=== PATIENT | female | born 1995 | race Caucasian/White ===

== ENCOUNTER 2024-04-16 11:44 | Outpatient (AMB) | payer OTHER, SELFPAY ==
--- NOTE | 2024-04-16 11:46 | A.OFFPC_ITS ---
Vital Signs 04/16/24 11:49 04/16/24 12:11 Height 5 ft 2 in Weight 148 lb 2 oz BMI 27.1 BP 136/72 114/64 Blood Pressure Location Lt brachial Lt brachial Position Sitting Sitting Respiration 14 Pulse 85 Pulse Source Pulse Oximeter Pulse Oximetry (%) 96 Oxygen Delivery Method Room Air Intake Visit Reasons: Est. Care / Physical (check ins) Intake Note: new patient to establish care Allergies Penicillins Allergy (Severe, Verified 04/16/24 11:58) Hives Medication List - Last Reconciled 04/16/24 by Irma Duffy, [facility]- norethindrone-ethin estradiol 0.5-35 mg-mcg (Necon) tabs PO DAILY rizatriptan take 1 tablet at onset of headache; if no relief, may repeat 1 tablet after at least 2 hrs PO Tobacco use date assessed: 04/16/24 Dental Screening Dental Screen Date: 04/16/24 Did you have a dental visit in the last 12 months?: No Did you have a dental problem in the last 6 months where you did not have access to dental care?: No Was dental information given to patient?: Patient has dentist HPI HPI Comments History of Present Illness Details Alis 28 y/o F with migraine without aura, mul tiple concussions, renal stones, OCD, GENOVEVA, PTSD, history of recurrent strep despite tonsillectomy, family hx of skin ca s/p lithotripsy 2017, tonsillectomy 2013, sinus surgery as child s/p dog bite 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 Mom and Dad alive and well. 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 & for CPE. No old medical records Relocated here from [facility], moved for College. Migraines - was on gabapentin in the past. Stopped taking. Has chronic migr aines, has tunnel vision at times, pain behind bilat eyes more on L. Well controlled w/ triptan Also using medical marijauna for migraines OCD, GENOVEVA, PTSD: tried antidepressant and anxiolytic in the past w/o + effect. Active w/ counselor. Lots of health anxiety. Denies SI/HI Eyes - could probably use glasses. Does not want to do eye exam at this time Skin - Family hx of skin cancer. No active concerns. Would like routine screening. Plan Derm referral Refill on migraine meds cont care w/ care team RTO 1 year for CPE Labs from today show normal electrolytes, normal renal function, hemoglobin A1c 4.7%, normal LFTs, normal lipid profile, normal TSH, normal urine microalbumin creatinine ratio [facility] Medical History (Updated 04/16/24 @ 16:46 by Irma Duffy, [facility]) No pertinent family history Migraines Anxiety Surgical History (Updated 04/16/24 @ 12:24 by Annmarie Vizcarra MA) History of facial surgery Hx of tonsillectomy Family History (Updated 04/16/24 @ 11:54 by Annmarie Vizcarra MA) Mother Mental health disorder Sister Mental health disorder Maternal Grandfather Mental health disorder Social History (Updated 04/16/24 @ 12:24 by Annmarie Vizcarra MA) Household Members: None Housing: House Are you a primary career specialist to a significant other at home: No Do you presently have visiting nurse or other home services: No Alcohol intake: current Alcohol intake frequency: a few times a month Patient Tobacco Use Status: Never used Tobacco e-Cigarette/Vaping Use: Never Used Substance Use Type: Marijuana service: No Current occupational status: employed 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 1. Little interest or pleasure in doing things: not at all 2. Feeling down, depressed, or hopeless: not at all 3. Trouble falling or staying asleep, or sleeping too much: several days 4. Feeling tired or having little energy: not at all 5. Poor appetite or overeating: not at all 6. Feeling bad about yourself - or that you are a failure or have let yourself or your family down: several days 7. Trouble concentrating on things, such as reading the newspaper or watching television: not at all 8. Moving or speaking so slowly that other people could have noticed. Or the opposite - being so fidgety or restless that you have been moving around a lot more than usual: not at all 9. Thoughts that you would be better off or of hurting yourself in some way: not at all Total score: 2 Depression Screening Interpretation: Negative Depression Screening Done: Yes 68897 - PHQ-9 Billing: Yes Source: Developed by Drs. Jass Scott, Maida Taylor, Hima Kim and colleagues, with an educational vanessa from [email or web address]. Thrive Questionnaire Date Thrive assessed: 04/16/24 I am a: Patient What is your living situation today?: I have a steady place to live Within the past 12 months, did the food you bought not last and you didn't have the money to get more?: Never true Within the past 12 months, did you worry whether your food would run out before you got money to buy more?: Never true Do you have trouble paying for medicines?: No Do you have trouble getting transportation to medical appointments?: No Do you have trouble paying your heating and electricity bill?: No Do you have trouble taking care of your child, family member or friend?: No Do you have trouble with day-to-day activities such as bathing, preparing meals, shopping, managing finances, etc.?: No Are you currently unemployed and looking for a job?: No Are you interested in more education?: No Please select the resources that you would like help with: None Currently or been in a relationship where the following occur: I choose not to answer THRIVE Score: 0 AUDIT C Alcohol Use Questionnaire (AUDIT-C) 1. How often do you have a drink containing alcohol?: 2-4 times a month 2. How many drinks containing alcohol do you have on a typical day when you are drinking?: 3 or 4 3. How often do you have six or more drinks on one occasion?: Never Total Score: 3 Score Reviewed/Action Taken: Yes GENOVEVA-7 AMB Questionnaire GENOVEVA-7 Date GENOVEVA - 7 assessed: 04/16/24 Feeling nervous, anxious, or on edge: 2 = More than half the days Not being able to stop or control worryin = More than half the days Worrying too much about different things: 2 = More than half the days Trouble relaxin = Nearly every day Being so restless that it is hard to sit still: 1 = Several days Becoming easily annoyed or irritable: 0 = Not at all Feeling afraid as if something awful might happen: 2 = More than half the days Total GENOVEVA-7 score (0-4 normal; 5-9 mild; 10-14 moderate; 15-21 severe): 12 Source: Developed by Drs. Jass Scott, Maida Taylor, Hima Kim and colleagues, with an educational vanessa from [email or web address]. GENOVEVA-7 Assessment Billing GENOVEVA-7 Assessment Tool: GENOVEVA-7 Assessment 56576 Review of Systems Const Details: Constitutional: Denies fever. Skin: Denies rash. Eye: Denies eye pain. ENMT: Denies sore throat and nasal congestion. Respiratory: Denies shortness of breath and cough. Gastrointestinal: Denies nausea, vomiting or abdominal pain. Cardiovascular: Denies chest pain and syncope. Genitourinary: Denies dysuria. Musculoskeletal: Denies back pain and extremity pain. Neurologic: Denies headaches, confusion, and weakness. Psychiatric: Denies suicidal thoughts and substance abuse. Allergy/ Immunologic: Denies impaired immunity. Physical exam (Primary Care) Vital Signs: Last Vital Signs Pulse 85 04/16/24 11:49 Resp 14 04/16/24 11:49 BP 114/64 04/16/24 12:11 Pulse Ox 96 04/16/24 11:49 Oxygen Delivery Method Room Air 04/16/24 11:49 BMI result Body Mass Index 27.1 Tobacco/Smoking Status: Tobacco use Status Tobacco use date assessed 04/16/24 04/16/24 11:53 Patient Tobacco Use Status Never used Tobacco 04/16/24 11:53 e-Cigarette/Vaping Use Never Used 04/16/24 11:53 PHQ-9: PHQ-9 Score PHQ-9: Total score 2 04/16/24 12:06 Depression Screening Interpretation: Negative Thrive Assessment: Date of Thrive Assessment Date Thrive assessed 04/16/24 04/16/24 11:48 Currently or been in a relationship where the following occur: I choose not to answer Const Other: General: Well developed, well nourished, in no acute distress. Appears stated age. Head: Normocephalic, atraumatic. Eyes: Pupils are equal, round and reactive to light and accommodation. Conjunctivae are clear. Vision grossly normal. Ears: TMs clear AU, EACS WNL Nose: Patent, without discharge. Mouth: There are no ulcers or lesions noted. No inflammation, no post nasal drip, no plaques nor exudates. Neck: Supple, no adenopathy or thyromegaly. Lungs: Clear to auscultation bilaterally. No rales, rhonchi or wheeze noted. Good air flow in all parada. Heart: Regular rate and rhythm. No murmurs, click, rubs or gallops are noted. Abdomen: Bowel sounds present in all quadrants. The abdomen is soft, nontender, with no masses or organomegaly noted. No hernias are noted. Musculoskeletal: Joints are nontender, without swelling, redness, or effusions. Range of motion is observed to be normal. Pulses: Peripheral pulses are equal and palpable bilaterally. Extremities: No clubbing, cyanosis nor edema is noted. Neurologic: Gait and station normal. Cranial Nerves 2-12 intact. Motor strength grossly symmetrical and intact. No sensory loss. Balance normal. Skin: No rashes, ulcers, or lesions noted. Turgor is good. Skin color is good. Hair and nails are without abnormalities. Psych: Normal eye contact, affect and mood appropriate, and normal inter actions. Patient is alert and appropriate to context. Coding Level of Care Code New Pt Prev Care 18-39yr(58257 Diagnoses Encounter for general adult medical examination without abnormal findings Z00.00 Migraine without aura and without status migrainosus, not intractable G43.009 Status migrainosus presence: without status migrainosus Intractability: not intractable Mixed obsessional thoughts and acts F42.2 Obsessive-compulsive disorder type: mixed obsessional thoughts and acts GENOVEVA (generalized anxiety disorder) F41.1 Family history of skin cancer Z80.8 Renal stones N20.0 PTSD (post-traumatic stress disorder) F43.10 Recurrent streptococcal pharyngitis J02.0 H/O multiple concussions Z87.820 Laboratory exam ordered as part of routine general medical examination Z00.00 Additional Codes GENOVEVA-7 Assessment Billing - GENOVEVA-7 Assessment Tool: GENOVEVA-7 Assessment 25417 ([id number]) Assessment & Plan Assessment & Plan (1) Encounter for general adult medical examination without abnormal findings: Code(s): Z00.00 - Encounter for general adult medical examination without abnormal findings Plan: . (2) Migraine without aura: Code(s): G43.009 - Migraine without aura, not intractable, without status migrainosus Category: Medical Qualifiers: Status migrainosus presence: without status migrainosus Intractability: not intractable Qualified Code(s): G43.009 - Migraine without aura, not intractable, without status migrainosus Plan: . (3) OCD (obsessive compulsive disorder): Code(s): F42.9 - Obsessive-compulsive disorder, unspecified Category: Medical Qualifiers: Obsessive-compulsive disorder type: mixed obsessional thoughts and acts Qualified Code(s): F42.2 - Mixed obsessional thoughts and acts Plan: . (4) GENOVEVA (generalized anxiety disorder): Code(s): F41.1 - Generalized anxiety disorder Category: Medical Plan: . (5) Family history of skin cancer: Code(s): Z80.8 - Family history of malignant neoplasm of other organs or systems Category: Medical Plan: . (6) Renal stones: Code(s): N20.0 - Calculus of kidney Category: Medical Plan: . (7) PTSD (post-traumatic stress disorder): Code(s): F43.10 - Post-traumatic stress disorder, unspecified Category: Medical Plan: . (8) Recurrent streptococcal pharyngitis: Comment: despite tonsillectomy Code(s): J02.0 - Streptococcal pharyngitis Category: Medical Plan: . (9) H/O multiple concussions: Code(s): Z87.820 - Personal history of traumatic brain injury Category: Medical Plan: . (10) Laboratory exam ordered as part of routine general medical examination: Code(s): Z00.00 - Encounter for general adult medical examination without abnormal findings Category: Medical Plan: . Orders: Orders Comprehensive Met. Panel Today Z00.00 - Encounter for general adult medical examination without abnormal findings TSH reflex Free T4 Today Z00.00 - Encounter for general adult medical examination without abnormal findings Hemoglobin A1c Today Z00.00 - Encounter for general adult medical examination without abnormal findings Lipid Panel Today Z00.00 - Encounter for general adult medical examination without abnormal findings Microalbumin, Random (w Creat) Today Z00.00 - Encounter for general adult medical examination without abnormal findings Referrals Dermatology Referral Z80.8 - Family history of malignant neoplasm of other organs or systems Medications: New rizatriptan take 1 tablet at onset of headache; if no relief, may repeat 1 tablet after at least 2 hrs PO 10 tabs 2RF Patient Instructions: Walk-In Care (Urgent Care): We Make it Easy Walk-in for urgent medical issues such as: ? Seasonal Allergies ? Insect Bites ? Cough ? Diarrhea ? Acute Asthma Attacks ? Back, Knee or Joint Pain ? Ear Infection ? Fever without a Rash ? Headaches ? Nausea ? [place] Eye, Rash or Skin Irritation ? Sore Throat ? Sports Physicals ? Vomiting Most insurances are accepted. Patients do not need to be part of the [facility] to seek care at the walk-in clinic. Locations [facility] , [place] [address] ? [phone] [facility] Walk-In Care in [place] provides services to ages 18 and over. Open Sunday-Sunday: 8 a.m. to 5 p.m. and Sunday: 9 a.m. to 3 p.m.* *Hours may vary due to staffing availability. To confirm Walk-In Care hours in [place], please call [phone]. [address] [place] [address] ? [phone] [facility] Walk-In Care in [place] provides services to ages 12 and over. Open Sunday-Sunday: 8 a.m. to 5 p.m. Hours may vary due to staffing availability. To confirm Walk-In Care hours in [place], please call [phone]. LABORATORY SERVICES: [facility] Lab ? Primary Location [address] [place] [address] Sunday through Sunday 6:00 AM ? 5:00 PM Sunday 7:00 AM ? 11:00 AM* [phone] The [facility] Lab is centrally located near the front entrance of the Medical Center for easy outpatient access. Convenient parking is provided for outpatients. *Hours may vary due to staffing availability. To confirm Laboratory hours for any location, please call [phone]. Offsite Location For your convenience, we offer offsite laboratory draw stations at the following locations: [address] [place] [address] ? [address], [address] Sunday through Sunday 7:30 AM ? 1:00 PM* [phone] *Hours may vary due to staffing availability. To confirm Laboratory hours for any location, please call [phone]. [place] ? [address] Sunday through Sunday 6:00 AM ? 3:30 PM* Sunday 6:30 AM ? 3 PM* [phone] *Hours may vary due to staffing availability. To confirm Laboratory hours for any location, please call [phone]. [address] [facility] Sunday through Sunday 7:30 AM ? 4:00 PM* [phone] *Hours may vary due to staffing availability. To confirm Laboratory hours for any location, please call [phone]. [address] [facility] Sunday through 9:00 AM ? 4:00 PM* *Hours may vary due to staffing availability. To confirm Laboratory hours for any location, please call [phone]. Appointments are not necessary. Walk-ins are welcome. Like all the departments throughout the [facility], our Lab undergoes frequent reviews to ensure the quality and accuracy of test results, and our staff takes special pride in its status as a nationally accredited facility. Patient Portal: ONE PATIENT. ONE RECORD. BETTER CARE. [facility] has a fully integrated, cutting- edge mobile electronic health information system that has revolutionized the way we care for our patients and manage our organization. This system improves communication and coordination enabling us to provide safe, higher-quality care, and an overall positive experience for staff and patients. Our first priority, as always, is to deliver the highest quality care possible. The system is running in the background supporting that priority. This portal is for all [facility] and [facility] services and practices. If you are experiencing any technical difficulties with enrolling or logging into the Patient Portal please complete the [facility] Patient Portal Technical Support Form. [facility] now offers a new secure on-line interactive tool for patients to review their health information ? Patient Portal. This interactive web portal will enable patients and their families to take an active role in their care by providing easy, secure access to their health information via the internet. The Patient Portal provides patients with instant access to their health information, including laboratory results, medications, allergies, demographic information, visit history, and more. In addition to managing their own care, parents and health care proxies with authorized consent will appreciate the ability to access the records of those individuals for whom they provide care. Please note: if you wish to gain access (Proxy) to another patient?s portal, you will be required to come to the Medical Records Department in person at [facility]. Both the patient giving proxy access and the proxy will need to provide photo identification and complete the appropriate authorization. The Patient Portal also allows track their appointments online. The [facility] Patient Portal also saves patients time by allowing them to submit updates to their demographic and contact information prior to their visits. Portal email notifications will also alert patients to any new activity on their portal, such as test results and new appointments. In order to initially enroll in the [facility] Patient Portal, you will need to enter some required information including the following: ? your [facility] Medical Record number ? your personal home email address ? name ? date of Please note: In order to enroll in the [facility] Patient Portal, we need to have your email address on file in your electronic medical record. The email address needs to be specific for one person (yourself) in order for your Portal enrollment to be successful. You can update your email address in person with our Registration staff when you are registering for a hospital visit. Otherwise, you will need to come to the Health Information Management (Medical Records) Department at [facility]. We are open from Sunday ? Sunday from 7:30 a.m. ? 4:30 p.m. You will be required to present a photo id. Once you have successfully enrolled in the Patient Portal, you will receive a one-time user id and password for the Portal, sent to your email address. This will allow you to log into the Patient Portal within 99 hrs and reset your own logon id and password, and define personal security questions. Once your permanent login and password have been set, you can log into the [facility] Patient Portal at any time via the blue button above or from the Portal Logon button on any page of the [facility] website. [facility] and [facility] encourage all of our patients to enroll in Patient Portal as it presents a valuable opportunity for patients and their families to actively participate in their care and stay healthy Welcome to [facility]. We look forward to working with you. Health screenings for women You should visit your health care provider from time to time, even if you are healthy. The purpose of these visits is to: Screen for medical issues Assess your risk for future medical problems Encourage a healthy lifestyle Update vaccinations and other preventive care services Help you get to know your provider in case of an illness Information Even if you feel fine, you should still see your provider for regular checkups. These visits can help you avoid problems in the future. For example, the only way to find out if you have high blood pressure is to have it checked regularly. High blood sugar and high cholesterol levels also may not have any symptoms in the early stages. A simple blood test can check for these conditions. There are specific times when you should see your provider or receive specific health screenings. The [place] Preventive Services Task Force publishes a list of recommended screenings. Below are screening guidelines for women ages 18 to 39. BLOOD PRESSURE SCREENING Your blood pressure should be checked at least once every 3 to 5 years if: Your blood pressure is in the normal range (top number less than 120 mm Hg and bottom number less than 80 mm Hg) You don't have risk factors for high blood pressure Ask your provider if you need your blood pressure checked more often if: The top number is 120 to 129 mm Hg or the bottom number is 70 to 79 mm Hg You have diabetes, heart disease, kidney problems, are overweight, or have certain other health conditions You have a first-degree relative with high blood pressure You are Black You had high blood pressure during a If the top number is 130 mm Hg or greater or the bottom number is 80 mm Hg or greater, this is considered stage 1 hypertension. Schedule an appointment with your provider to learn how you can reduce your blood pressure. Watch for blood pressure screenings in your area. Ask your provider if you can stop in to have your blood pressure checked. BREAST CANCER SCREENING Experts do not agree about the benefits of breast self-exams in finding breast cancer or saving lives. Talk to your provider about what is best for you. A screening mammogram is not recommended for most women under age 40. Your provider may discuss and recommend mammograms, MRI scans, or ultrasounds if you have an increased risk for breast cancer, such as: A mother or sister who had breast cancer at a young age (most often starting screening earlier than the age the close relative was diagnosed) You carry a high-risk genetic marker CERVICAL CANCER SCREENING Cervical cancer screening should start at age 21 years unless your provider advises otherwise. After the first test: Women ages 21 through 29 should have a Pap test every 3 years. Exoprts do not agree on whether HPV testing is recommended for this age group. Women ages 30 through 65 should be screened with either a Pap test every 3 years or the HPV test every 5 years or both tests every 5 years (called cotesting ). Women who have been treated for precancer (cervical dysplasia) should continue to have Pap tests for 20 years after treatment or until age 65, whichever is longer. If you have had your uterus and cervix removed (total hysterectomy), and you have not been diagnosed with cervical cancer or precancer (high grade cervical neoplasia), you do not need cervical cancer screening. CHOLESTEROL SCREENING Cholesterol screening should begin at: Age 45 for women with no known risk factors for coronary heart disease Age 20 for women with known risk factors for coronary heart disease Repeat cholesterol screening should take place: Every 5 years for women with normal cholesterol levels More often if changes occur in lifestyle (including weight gain and diet) More often if you have diabetes, heart disease, kidney problems, or certain other conditions DIABETES SCREENING You should be screened for diabetes starting at age 35 and then repeated every 3 years if you have no risk factors for diabetes. Screening may need to start earlier and be repeated more often if you have other risk factors for diabetes, such as: You have a first degree relative with diabetes. You are overweight or have obesity. You have high blood pressure, prediabetes, or a history of heart disease. Screening for diabetes should be done if you are planning to become and you are overweight and have other risk factors such as high blood pressure. DENTAL EXAM Go to the dentist once or twice every year for an exam and cleaning. Your dentist will evaluate if you need more frequent visits. EYE EXAM Have an eye exam every 5 to 10 years before age 40. If you have vision problems, have an eye exam every 2 years or more often if recommended by your provider. You should have an eye exam that includes an examination of your retina (back of your eye) at least every year if you have diabetes. IMMUNIZATIONS Commonly needed vaccines include: Flu shot: get one every year. COVID-19 vaccine: ask your provider what is best for you. Tetanus-diphtheria and acellular pertussis (Tdap) vaccine: have one at or after age 19 as one of your tetanus-diphtheria vaccines if you did not receive it as an adolescent. Tetanus-diphtheria: have a booster (or Tdap) every 10 years. Varicella vaccine: receive 2 doses if you never had chickenpox or the varicella vaccine. Hepatitis B vaccine: receive 2, 3, or 4 doses, depending on your exact circumstances. Measles, mumps, and rubella (MMR) vaccine: receive 1 to 2 doses if you are not already immune to MMR. Your provider can tell you if you are immune. Ask your provider about the human papillomavirus (HPV) vaccine if: You have not received the HPV vaccine in the past You have not completed the full vaccine series (you should catch up on this shot) Ask your provider if you should receive other immunizations if you have certain health problems that increase your risk for some diseases such as pneumonia. INFECTIOUS DISEASE SCREENING Women who are sexually active should be screened for chlamydia and gonorrhea up until age 25. Women 25 years and older should be screened for chlamydia and gonorrhea if at high risk. Screening for hepatitis C: All adults ages 18 to 79 should get a one-time test for hepatitis C. people should be screened at every . Screening for human immunodeficiency virus (HIV): All people ages 15 to 65 should get a one-time test for HIV. Depending on your lifestyle and medical history, you may also need to be screened for infections such as syphilis and HIV, as well as other infections. PHYSICAL EXAM All adults should visit their provider from time to time, even if they are healthy. The purpose of these visits is to: Screen for disease Assess your risk of future medical problems Encourage a healthy lifestyle Update your vaccinations and other preventive care services Maintain a relationship with a provider in case of an illness Your height, weight, and BMI should be checked at every exam. During your exam, your provider may ask you about: Depression and anxiety Diet and exercise Alcohol and tobacco use Safety issues, such as using seat belts, smoke detectors, and intimate partner violence Your medicines and risk for interactions SKIN SELF-EXAM Your provider may check your skin for signs of skin cancer, especially if you're at high risk, such as if you: Have had skin cancer before Have close relatives with skin cancer Have a weakened immune system OTHER SCREENING Talk with your provider about colon cancer screening if you have a strong family history of colon cancer or polyps, or if you have had inflammatory bowel disease or polyps yourself. Routine bone density screening of women under 40 is not recommended.
[2024-04-16 11:49] VITALS: BP 136/72; PULSE 85; RESP 14; O2SAT 96; BMI 27.1
[2024-04-16 12:11] VITALS: BP 114/64
== END 2024-04-16 12:20 | disposition home or self-care (01) ==
PROVIDERS: PCP Nurse Practitioner Family; Visit Provider Nurse Practitioner Family
DX: Z00.00 Encounter for general adult medical examination without abnormal findings (principal); G43.009 Migraine without aura, not intractable, without status migrainosus; F42.2 Mixed obsessional thoughts and acts; F41.1 Generalized anxiety disorder; Z80.8 Family history of malignant neoplasm of other organs or systems; N20.0 Calculus of kidney; F43.10 Post-traumatic stress disorder, unspecified; J02.0 Streptococcal pharyngitis; Z87.820 Personal history of traumatic brain injury

== ENCOUNTER → 2024-04-16 11:44 | Outpatient (BNVA) | payer MEDICARE, SELFPAY | PROVIDERS: PCP Nurse Practitioner Family; Visit Provider Nurse Practitioner Family | DX: Z00.00 Encounter for general adult medical examination without abnormal findings (principal); G43.009 Migraine without aura, not intractable, without status migrainosus; F42.2 Mixed obsessional thoughts and acts; F41.1 Generalized anxiety disorder; N20.0 Calculus of kidney; F43.10 Post-traumatic stress disorder, unspecified; J02.0 Streptococcal pharyngitis; Z87.820 Personal history of traumatic brain injury; Z80.8 Family history of malignant neoplasm of other organs or systems | CPT/HCPCS: 96127; 99385 ==

== ENCOUNTER 2024-04-16 12:37 | Outpatient (REF) | payer OTHER, SELFPAY ==
[2024-04-16 14:40] LABS: Estimated Average Glucose 88 mg/dL; Hemoglobin A1C 97.8336 umol/L; Hemoglobin A1c % 4.7 % (<6.0); Total Hemoglobin (HGBA1C) 3505.1706 umol/L
[2024-04-16 14:53] LABS: Alanine Aminotransferase 29 U/L (0-31); Albumin Level 4.6 g/dL (3.5-5.0); Alkaline Phosphatase 65 U/L (39-117); Anion Gap 12 (12-20); Aspartate Amino Transferase 25 U/L (5-31); Bilirubin Total 0.7 mg/dL (0.0-1.0); Blood Urea Nitrogen 8 mg/dL (9-16); Calcium 10.1 mg/dL (8.4-10.2); Carbon Dioxide 26 mmol/L (22-29); Chloride 107 mmol/L (96-108); Cholesterol 197 mg/dL (<200); Estimated Glomerular Filt Rate > 60; Glucose Random 89 mg/dL (60-115); HDL Cholesterol 51 mg/dL (>40); LDL Cholesterol Calculated 121 mg/dL (<100); Potassium 3.9 mmol/L (3.3-5.1); Sodium 141 mmol/L (135-145); Total Protein 7.4 g/dL (6.5-8.0); Triglycerides 128 mg/dL (<150)
[2024-04-16 15:06] LABS: Creatinine Urine 49.61 mg/dL; Microalbumin Urine < 5.0 mg/L
== END 2024-04-16 12:38 | disposition home or self-care (01) ==
LOC: HO.WFDLDS 12:37
PROVIDERS: Visit Provider Nurse Practitioner Family
DX: Z00.00 Encounter for general adult medical examination without abnormal findings (principal)
CPT/HCPCS: 36415; 80053; 80061; 82043; 82570; 83036; 84443

== ENCOUNTER 2024-05-27 09:06 | Outpatient (AMB) | payer OTHER, SELFPAY ==
--- NOTE | 2024-05-27 09:32 | AM.OFFWIN_ITS ---
Intake Vital Signs 05/27/24 09:35 Height 5 ft 2 in Weight 145 lb BMI 26.5 BP 131/60 Blood Pressure Location Rt brachial Position Sitting Respiration 13 Pulse 80 Pulse Source Pulse Oximeter Temp 98.5 F Temp Source Oral Pulse Oximetry (%) 99 Oxygen Delivery Method Room Air Intake Visit Reasons: throat pain Intake Note: Patient complaining of sore throat x 5 days. Patient Tobacco Use Status: Never used Tobacco Gas Meter Mechanic Required: No Allergies Penicillins Allergy (Severe, Verified 05/27/24 09:53) Hives Medication List - Last Reconciled 05/27/24 by Irma Duffy, [facility]- norethindrone-ethin estradiol 0.5-35 mg-mcg (Necon) tabs PO DAILY rizatriptan take 1 tablet at onset of headache; if no relief, may repeat 1 tablet after at least 2 hrs PO Do you need a note to return to daycare/school/sports/work: No HPI HPI Comments History of Present Illness Details Alis 28 y/o F with migraine without aura, mul tiple concussions, renal stones, OCD, GENOVEVA, PTSD, history of recurrent strep despite tonsillectomy, family hx of skin ca s/p lithotripsy 2017, tonsillectomy 2013, sinus surgery as child s/p dog bite Here today with complaints of a sore throat. It started last Sunday, worse since onset. worse on L, radiating into L ear; swollen glands, painful swallowing describes as feeling like glass Has been taking APAP and NSAIDs which has helped w/ swollen glands Denies fever, chills, n/v, abd pain, rash. Denies new sex partners or concerns for STDs Exam Awake alert NAD Sclera and conjunctiva clear bilat Nares with mucoid d/c L, turbinates within normal limits, no sinus tenderness with palpation bilat TM intact air bubbles on R, TM intact, loss of land weaver, bulging, dull on L MMM, pharynx no edudate, uvula midline, erythema on L side, shotty ac adenopathy bilat Plan Rapid strep negative. We will treat with antibiotics to cover otitis media. Advised to take antibiotics as directed. Okay to use [id number] analgesia. Use saltwater gargles. If fullness in left ear continues but sore throat improves, advised to use [id number] Flonase. If her symptoms do not improve or if they worsen advised for her to return to the office for repeat evaluation. This note is constructed using voice recognition software. While every effort has been made to ensure accuracy in manager bar, still errors may have been included Sometimes, these errors may affect the content or meaning of the given sentence . [facility] Medical History (Updated 05/27/24 @ 10:00 by Irma Duffy [facility]) No pertinent family history Migraines Anxiety Surgical History (Updated 04/16/24 @ 12:24 by Annmarie Vizcarra MA) History of facial surgery Hx of tonsillectomy Family History (Updated 04/16/24 @ 11:54 by Annmarie Vizcarra MA) Mother Mental health disorder Sister Mental health disorder Maternal Grandfather Mental health disorder Social History (Updated 04/16/24 @ 12:24 by Annmarie Vizcarra MA) Household Members: None Both parents involved: No Caregiver staying overnight: No Housing: House Are you a primary career placement services counselor to a significant other at home: No Do you presently have visiting nurse or other home services: No 75 years or older and lives alone: No Alcohol intake: current Alcohol intake frequency: a few times a month Patient Tobacco Use Status: Never used Tobacco e-Cigarette/Vaping Use: Never Used Substance Use Type: Marijuana service: No Current occupational status: employed 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 Cognitive needs: No Hearing needs: No Vision needs: No Physical Exam Vital Signs: Last Vital Signs Temp 98.5 F 05/27/24 09:35 Pulse 80 05/27/24 09:35 Resp 13 05/27/24 09:35 BP 131/60 05/27/24 09:35 Pulse Ox 99 05/27/24 09:35 Oxygen Delivery Method Room Air 05/27/24 09:35 BMI result Body Mass Index 26.5 Results AMB Rapid Strep AMB Rapid Strep Negative Last Edit by Annmarie Vizcarra MA on 05/27/24 09:59 Results Reviewed Results Reviewed: Laboratory Last Values Strep Scn Rapid Clinic Negative 05/27/24 09:51 Assessment & Plan Assessment & Plan (1) Acute pharyngitis: Code(s): J02.9 - Acute pharyngitis, unspecified Qualifiers: Pharyngitis/tonsillitis etiology: unspecified etiology Qualified Code(s): J02.9 - Acute pharyngitis, unspecified (2) Otitis media, left: Code(s): H66.92 - Otitis media, unspecified, left ear Qualifiers: Otitis media type: suppurative Chronicity: acute Recurrence: non- recurrent Spontaneous tympanic membrane rupture: without spontaneous rupture Qualified Code(s): H66.002 - Acute suppurative otitis media without spontaneous rupture of ear drum, left ear Plan . Orders: Orders AMB Rapid Strep Screen Today Z13.9 - Encounter for screening, unspecified Medications: New azithromycin For 250 mg dose pack: take 500 mg today (day 1), then 250 mg for 4 days (days 2-5) PO 5 days 6 tabs 0RF Coding Level of Care Code Est Pt Level 4 (37534) Diagnoses Acute pharyngitis, unspecified etiology J02.9 Pharyngitis/tonsillitis etiology: unspecified etiology Non-recurrent acute suppurative otitis media of left ear without spontaneous rupture of tympanic membrane H66.002 Otitis media type: suppurative Chronicity: acute Recurrence: non-recurrent Spontaneous tympanic membrane rupture: without spontaneous rupture
[2024-05-27 09:35] VITALS: BP 131/60; PULSE 80; RESP 13; TEMP 36.9; O2SAT 99; BMI 26.5
== END 2024-05-27 09:59 | disposition home or self-care (01) ==
PROVIDERS: PCP Nurse Practitioner Family; Visit Provider Nurse Practitioner Family
DX: J02.9 Acute pharyngitis, unspecified (principal); H66.002 Acute suppurative otitis media without spontaneous rupture of ear drum, left ear; Z13.9 Encounter for screening, unspecified

== ENCOUNTER → 2024-05-27 09:06 | Outpatient (BNVA) | payer OTHER, SELFPAY | PROVIDERS: PCP Nurse Practitioner Family; Visit Provider Nurse Practitioner Family | DX: J02.9 Acute pharyngitis, unspecified (principal); H66.002 Acute suppurative otitis media without spontaneous rupture of ear drum, left ear | CPT/HCPCS: 87880 ==

== ENCOUNTER 2025-03-03 10:27 | Outpatient (AMB) | payer OTHER, SELFPAY ==
--- NOTE | 2025-03-03 10:29 | MHC.OFFWIV ---
Intake Vital Signs 03/03/25 10:34 Height 5 ft 2 in Weight 138 lb 4 oz BMI 25.3 BP 122/70 Blood Pressure Location Lt brachial Position Sitting Respiration 12 Pulse 65 Pulse Source Pulse Oximeter Temp 97.7 F Temp Source Oral Pulse Oximetry (%) 98 Oxygen Delivery Method Simple Mask Intake Visit Reasons: sore throat Intake Note: Patient c/o sore throat since last Sunday. Patient Tobacco Use Status: Never used Tobacco Division Order Analyst Required: No Allergies Penicillins Allergy (Severe, Verified 03/03/25 10:29) Hives Do you need a note to return to daycare/school/sports/work: No PFSH Medical History (Updated 05/27/24 @ 10:00 by Irma Duffy [facility]) No pertinent family history Migraines Anxiety Surgical History (Updated 04/16/24 @ 12:24 by Annmarie Vizcarra MA) History of facial surgery Hx of tonsillectomy Family History (Updated 04/16/24 @ 11:54 by Annmarie Vizcarra MA) Mother Mental health disorder Sister Mental health disorder Maternal Grandfather Mental health disorder Social History (Updated 04/16/24 @ 12:24 by Annmarie Vizcarra MA) Household Members: None Both parents involved: No Caregiver staying overnight: No Housing: House Are you a primary acute care physical therapist to a significant other at home: No Do you presently have visiting nurse or other home services: No 75 years or older and lives alone: No Alcohol intake: current Alcohol intake frequency: a few times a month Patient Tobacco Use Status: Never used Tobacco e-Cigarette/Vaping Use: Never Used Substance Use Type: Marijuana service: No Current occupational status: employed 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
[2025-03-03 10:34] VITALS: BP 122/70; PULSE 65; RESP 12; TEMP 36.5; O2SAT 98; BMI 25.3
--- NOTE | 2025-03-03 10:43 | A.OFFPC_ITS ---
Vital Signs 03/03/25 10:34 Height 5 ft 2 in Weight 138 lb 4 oz BMI 25.3 BP 122/70 Blood Pressure Location Lt brachial Position Sitting Respiration 12 Pulse 65 Pulse Source Pulse Oximeter Temp 97.7 F Temp Source Oral Pulse Oximetry (%) 98 Oxygen Delivery Method Simple Mask Intake Visit Reasons: sore throat Allergies Penicillins Allergy (Severe, Verified 03/03/25 10:42) Hives Medication List - Last Reconciled 03/03/25 by Irma Duffy [facility]- azithromycin For 250 mg dose pack: take 500 mg today (day 1), then 250 mg for 4 days (days 2-5) PO 5 days norethindrone-ethin estradiol 0.5-35 mg-mcg (Necon) tabs PO DAILY rizatriptan take 1 tablet at onset of headache; if no relief, may repeat 1 tablet after at least 2 hrs PO Tobacco use date assessed: 04/16/24 Dental Screening Dental Screen Date: 04/16/24 HPI HPI Comments History of Present Illness Details Alis 29 y/o F with migraine without aura, mul tiple concussions, renal stones, OCD, GENOVEVA, PTSD, history of recurrent strep despite tonsillectomy, family hx of skin ca s/p lithotripsy 2017, tonsillectomy 2013, sinus surgery as child s/p dog bite History - The patient is a 29-year-old female pr esenting with a sore throat. - Duration: since last Sunday. Exposur e to sick contacts - Location: Sore throat on the left side ; radiation to the left ear. - Associated symptoms: No fever or syste ambar symptoms. - Past episodes: Similar episodes of sor e throat last year; tonsillectomy history. - Taking aleve for pain with short lived relief - Diagnosis: Negative for streptococcal pharyngitis. Review of Systems - ENT: Reports sore throat localized to the left side, radiating to the left ear; Denies fever and cough. - Gastrointestinal: Denies nausea and vo miting. - Respiratory: Denies cough. - General: Denies chills. - Eyes: Denies drainage. Physical Exam Awake alert NAD Sclera and conjunctiva clear bilat Nares patentL, turbinates within normal limits, no sinus tenderness with palpation bilat TM intact, clear R, TM intact, loss of land weaver, bulging, dull on L MMM, pharynx no edudate, uvula midline, erythema on L side, shotty ac adenopathy bilat Results - Labs: Negative streptococcal test resu lt. Discussion Notes I discussed with the patient that her symptoms are consistent with an acute otitis media on the left side. We reviewed the negative strep test results and the history of recurrent tonsillitis post-tonsillectomy. I explained the likely bacterial origin of her current otitis media and the protocol for using azithromycin, noting the patient's past efficacy with this treatment. The patient was advised to monitor symptoms and encouraged to start antibiotics today with an expectation of potential improvements, particularly mentioning that returning to daily activities may be feasible by tomorrow. Should symptoms persist beyond a reasonable period or worsen, the patient is encouraged to reach back for further evaluation. I ensured that a follow-up was offered if her recovery does not progress as expected. Patient was given time to ask questions. All questions were answered to their satisfaction. Assessment and Plan - Azithromycin prescribed for bacterial management. - Anticipated response to antibiotics; r eview if no improvement. - OTC analgesics PRN Patient Instructions - Start taking prescribed azithromycin. - Ensure complete course of antibiotics. - Return to daily activities once sympto ms improve. - Contact if symptoms persist or worsen. Consent Patient was informed and verbally consented to the use of an ambient scribe for clinic note documentation during this visit. [facility] Medical History (Updated 03/03/25 @ 10:45 by Irma Duffy, [facility]) Anxiety Migraines No pertinent family history Surgical History (Updated 04/16/24 @ 12:24 by Annmarie Vizcarra MA) History of facial surgery Hx of tonsillectomy Family History (Updated 04/16/24 @ 11:54 by Annmarie Vizcarra MA) Mother Mental health disorder Sister Mental health disorder Maternal Grandfather Mental health disorder Social History (Updated 04/16/24 @ 12:24 by Annmarie Vizcarra MA) Household Members: None Both parents involved: No Caregiver staying overnight: No Housing: House Are you a primary healthcare interpreter to a significant other at home: No Do you presently have visiting nurse or other home services: No 75 years or older and lives alone: No Alcohol intake: current Alcohol intake frequency: a few times a month Patient Tobacco Use Status: Never used Tobacco e-Cigarette/Vaping Use: Never Used Substance Use Type: Marijuana service: No Current occupational status: employed 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 1. Little interest or pleasure in doing things: not at all 2. Feeling down, depressed, or hopeless: not at all 3. Trouble falling or staying asleep, or sleeping too much: not at all 4. Feeling tired or having little energy: not at all 5. Poor appetite or overeating: not at all 6. Feeling bad about yourself - or that you are a failure or have let yourself or your family down: not at all 7. Trouble concentrating on things, such as reading the newspaper or watching television: not at all 8. Moving or speaking so slowly that other people could have noticed. Or the opposite - being so fidgety or restless that you have been moving around a lot more than usual: not at all 9. Thoughts that you would be better off or of hurting yourself in some way: not at all Total score: 0 Depression Screening Interpretation: Negative Depression Screening Done: Yes 36583 - PHQ-9 Billing: Yes Source: Developed by Drs. Jass Scott, Maida Taylor, Hima Kim and colleagues, with an educational vanessa from [employer] Thrive Questionnaire Date Thrive assessed: 03/03/25 I am a: Patient What is your living situation today?: I have a steady place to live Within the past 12 months, did the food you bought not last and you didn't have the money to get more?: Never true Within the past 12 months, did you worry whether your food would run out before you got money to buy more?: Never true Do you have trouble paying for medicines?: No Do you have trouble getting transportation to medical appointments?: No Do you have trouble paying your heating and electricity bill?: No Do you have trouble taking care of your child, family member or friend?: No Do you have trouble with day-to-day activities such as bathing, preparing meals, shopping, managing finances, etc.?: No Are you currently unemployed and looking for a job?: No Are you interested in more education?: No Please select the resources that you would like help with: None Currently or been in a relationship where the following occur: No concerns reported THRIVE Score: 0 AUDIT C Alcohol Use Questionnaire (AUDIT-C) 1. How often do you have a drink containing alcohol?: 2-4 times a month 2. How many drinks containing alcohol do you have on a typical day when you are drinking?: 3 or 4 3. How often do you have six or more drinks on one occasion?: Never Total Score: 3 Score Reviewed/Action Taken: Yes GENOVEVA-7 AMB Questionnaire GENOVEVA-7 Date GENOVEVA - 7 assessed: 03/03/25 Feeling nervous, anxious, or on edge: 0 = Not at all Not being able to stop or control worryin = Not at all Worrying too much about different things: 0 = Not at all Trouble relaxin = Not at all Being so restless that it is hard to sit still: 0 = Not at all Becoming easily annoyed or irritable: 0 = Not at all Feeling afraid as if something awful might happen: 0 = Not at all Total GENOVEVA-7 score (0-4 normal; 5-9 mild; 10-14 moderate; 15-21 severe): 0 Source: Developed by Drs. Jass Scott, Maida Taylor, Hima Kim and colleagues, with an educational vanessa from [employer] GENOVEVA-7 Assessment Billing GENOVEVA-7 Assessment Tool: GENOVEVA-7 Assessment 95503 Physical exam (Primary Care) Vital Signs: Last Vital Signs Temp 97.7 F 03/03/25 10:34 Pulse 65 03/03/25 10:34 Resp 12 03/03/25 10:34 BP 122/70 03/03/25 10:34 Pulse Ox 98 03/03/25 10:34 Oxygen Delivery Method Simple Mask 03/03/25 10:34 BMI result Body Mass Index 25.3 Tobacco/Smoking Status: Tobacco use Status Tobacco use date assessed 04/16/24 04/16/24 11:53 Patient Tobacco Use Status Never used Tobacco 05/27/24 09:37 e-Cigarette/Vaping Use Never Used 04/16/24 12:24 Depression Screening Interpretation: Negative Thrive Assessment: Date of Thrive Assessment Date Thrive assessed 03/03/25 03/03/25 09:11 Currently or been in a relationship where the following occur: No concerns reported Results AMB Rapid Strep AMB Rapid Strep Negative Last Edit by Annmarie Morse MA on 03/03/25 10:41 Results Reviewed Results Reviewed: Laboratory Last Values Strep Scn Rapid Clinic Negative 03/03/25 10:38 Coding Level of Care Code Est Pt Level 4 (96102) Complex EM visit Add On G2211 Diagnoses Non-recurrent acute suppurative otitis media of left ear without spontaneous rupture of tympanic membrane H66.002 Otitis media type: suppurative Chronicity: acute Recurrence: non-recurrent Spontaneous tympanic membrane rupture: without spontaneous rupture Acute pharyngitis, unspecified etiology J02.9 Pharyngitis/tonsillitis etiology: unspecified etiology Additional Codes PHQ-9 - 27988 - PHQ-9 Billing: Yes ([id number]) GENOVEVA-7 Assessment Billing - GENOVEVA-7 Assessment Tool: GENOVEVA-7 Assessment 34048 ([id number]) Assessment & Plan Assessment & Plan (1) Otitis media, left: Code(s): H66.92 - Otitis media, unspecified, left ear Category: Medical Qualifiers: Otitis media type: suppurative Chronicity: acute Recurrence: non- recurrent Spontaneous tympanic membrane rupture: without spontaneous rupture Qualified Code(s): H66.002 - Acute suppurative otitis media without spontaneous rupture of ear drum, left ear (2) Acute pharyngitis: Code(s): J02.9 - Acute pharyngitis, unspecified Category: Medical Qualifiers: Pharyngitis/tonsillitis etiology: unspecified etiology Qualified Code(s): J02.9 - Acute pharyngitis, unspecified Plan . Orders: Orders AMB Rapid Strep Screen Today Z13.9 - Encounter for screening, unspecified Medications: Refilled azithromycin For 250 mg dose pack: take 500 mg today (day 1), then 250 mg for 4 days (days 2-5) PO 6 tabs 0RF 5 days
--- OUTSIDE RECORDS SUMMARY | 2025-03-03 12:17 | XMS_ITS | Encounter Summary ---
Author Organization [facility] Address [address] [place] [id number] Phone Care Team Providers Care Gender Studies Professor Name Role Phone Atif Perez MD Unavailable [phone] Atif Perez MD Primary Care Provider [phone] Jolanta Starr MD Primary Care Provider [phone] Atif Perez MD Primary Care Provider [phone] Encounter Details Date Type Department Care Team (Late st Contact Info) Description 11/30/2016 Transcribe Orders [facility] SPECIMEN [address] [place] [address] Kaushal Hopson MD, MPH [address] [facility] [address] [place] [address] [email or web address] Social History Tobacco Use Types Packs/Day Years Used Date Smoking Tobacco: Never Comments Unknown Sex and Gender Information Value Date Recorded Sex Assigned at Not on file Legal Sex Female 11:15 AM EDT Gender Identity Not on file Sexual Orientation Not on file documented as of this encounter Plan of Treatment Not on file documented as of this encounter Visit Diagnoses Not on filedocumented in this encounter Care Teams Gender Studies Professor Relationship Specialty Start Date End Date Atif Perez MD [address] [place] [id number] PCP - General Internal Medicine 11/30/16 12/03/16 Jolanta Starr MD [address] [place] [address] [place] [address] [email or web address] PCP - General Internal Medicine 12/04/16 12/04/16 Atif Perez MD [address] [place] [address] [place] [id number] [email or web address] PCP - General Internal Medicine 12/05/16 Atif Perez MD [address] [place], [place] [address] [address] [email or web address] Insurance Assigned Provider 09/29/23 12/01/23 documented as of this encounter Additional Source Comments The information contained in this document represents components of the legal health record. It is not the complete legal health record.[facility]
--- OUTSIDE RECORDS SUMMARY | 2025-03-03 12:17 | XMS_ITS | Encounter Summary ---
Author Organization [facility] Address [address] [place] [address] Phone Care Team Providers Care Ash Kier Boiler Name Role Phone Nubia Alejandra MD Primary Care Provider [phone] Encounter Details Date Type Department Care Team (Late st Contact Info) Description 11/10/[address] [facility] [address] [place] [address] Nubia Alejandra MD [address] [place] [address] Social History Tobacco Use Types Packs/Day Years Used Date Smoking Tobacco: Never Comments:never smoker Comments Unknown Sex and Gender Information Value Date Recorded Sex Assigned at Not on file Legal Sex Female 8:36 PM EST Gender Identity Not on file Sexual Orientation Not on file documented as of this encounter Plan of Treatment Not on file documented as of this encounter Visit Diagnoses Not on filedocumented in this encounter Care Teams Ash Kier Boiler Relationship Specialty Start Date End Date Nubia Alejandra MD [address] [place] [address] PCP - General 08/15/16 12/05/18 documented as of this encounter
--- OUTSIDE RECORDS SUMMARY | 2025-03-03 12:17 | XMS_ITS | Clinical Summary ---
Author Organization [facility] Address [address] [facility] [address] [place] [address] Phone Care Team Providers Care Rail Setter Name Role Phone Atif Perez MD Primary Care Provider [phone] Allergies Active Allergy Reactions Criticality Noted Date Comments Penicillins Rash 04/22/2007 Medications hydroCHLOROthia zide (MICROZIDE) 12.5 mg capsule 12/14/2017 Act davonte levonorgestrel- ethinyl estradiol (KURVELO, 28,) 0.15-0.03 mg per tablet Take 1 tablet by mouth daily. Active rizatriptan (MAXALT) 10 MG tablet Take 1 tablet (10 mg total) by mouth as needed for migraine. May repeat in 2 hours if needed 9 tablet 11 04/23/2023 Active gabapentin (NEURONTIN) 600 MG tablet TAKE 2 TABLETS BY MOUTH IN THE MORNING 180 tablet 3 05/21/2023 Active Active Problems Problem Noted Date Diagnosed Date Strep throat exposure 11/30/2023 Assessment & Plan (11/30/2023 8:34 AM EDT): Exposure to strep and now with symptoms Will treat Has PCN allergy, azithromycin has worked for her in the past and she tolerates it well Azithromycin 500mg x3 days Stay well hydrated, OTC pain meds, soft diet F/u if not improving Primary insomnia 05/12/2022 Intractable migraine without aura and without status migrainosus 07/02/2018 Kidney stone 01/09/2018 Resolved Problems Problem Noted Date Diagnosed Date Resolved Date Brain concussion 06/12/2016 01/09/2018 Overview (07/15/2016): Brain concussion - X 2 Uncoded S/P Tonsillectomy - 201306/12/2016 01/09/2018 Overview (07/15/2016): S/P Tonsillectomy - 2013 Immunizations Immunization Administration Dates Next Due DTaP, unspecified formulation 08/06/2002 ,02/01/1999,02/02/1998,11/26,1997 HPV, unspecified formulation 08/08/2011,04/10/20 11,09/28/2010 Hepatitis A, Unspecified 04/20/2014,04/16/2013 Hepatitis B, unspecified formulation 05/04/1998, 1997,1997 Hib, unspecified formulation 11/01/1998, 02/02/1998,1997,11/01,1997 Influenza Quadrivalent Intranasal 2013,04/15/2012,04/10/2011,03/15,04/20/2008 Influenza Quadrivalent Prese rvative Free IM 05/03/2019,04/08/2018,06/12/2016,04/21,04/16/2013 Influenza, Unspecified Formulation 03/19/2020, MMR 08/06/2002,11/01/1998 Meningococcal MCV4P 04/20/2014,03/15/2010 Meningococcal unknown serogroups 04/20/2014,09/2 06/2009 PPD Test 12/06/2018,12/13/2015,11/29/2015 Polio, Unspecified Formulation 3,02/01/1999,1997,09/29 Td, unspecified formulation 04/25/2008 Tdap 12/06/2018,03/15/2010 Varicella 08/29/2006,08/04/1999 Family History Medical History Relation Comments Hearing loss Mother Migraines Mother Relation Status Comments Mother Social History Tobacco Use Types Packs/Day Years Used Date Smoking Tobacco: Never Smokeless Tobacco: Never Education Answer Date Recorded Are you interested in more education? Not on emery e 10/20/2022 Are you concerned about learning? Not on file 10/20/2022 No 10/20/2022 No 10/20/2022 Digital Access Answer Date Recorded No 11/20/2022 No 11/20/2022 Reliable internet access at home? Not on file 11/20/2022 Device with a working camera? Not on file Comments Unknown Sex and Gender Information Value Date Recorded Sex Assigned at Not on file Legal Sex Female 11:15 AM EDT Gender Identity Not on file Sexual Orientation Not on file Last Filed Vital Signs Vital Sign Reading Time Taken Comments Blood Pressure 120/88 07/03/2019 10:47 AM EST Pulse 80 07/03/2019 10:47 AM EST Temperature 37.1 C (98.8 F) 05/24/2021 2:02 PM EST Respiratory Rate - - Oxygen Saturation 98% 12/06/2018 8:32 AM EDT Inhaled Oxygen Concentration - - Weight 70.8 kg (156 lb) 12/06/2018 8:32 AM EDT Height 160 cm (5' 3 ) 12/06/2018 8:32 AM EDT Body Mass Index 27.63 12/06/2018 8:32 AM EDT Plan of Treatment Health Maintenance Due Date Last Done Comments HIV ONE-TIME SCREENING (18-65 YEARS) 2015 PAP SMEAR 2018 POTASSIUM LEVEL 12/07/2019 12/06/2018, 11/29/2016 DEPRESSION SCREENING 02/12/2021 02/13/2020 INFLUENZA VACCINE (#1) 2025 , 03/26/2023, 03/16/2022, Additional history exists Adult Td,Tdap Booster 12/06/2028 12/06/2018 , 03/15/2010, 04/25/2008 HIB VACCINES Completed 11/01/1998, 01/23, 1997, Additional history exists HEPATITIS A VACCINES Completed 04/20/2014, 04/16/20 13 MENINGOCOCCAL VACCINES (ACWY) Completed 04/20/2014, 03/15/2010 HEPATITIS C SCREENING Completed 07/01/2019 SMOKING STATUS SCREENING (Once After 26 Yrs) Completed 01/17/2023 COVID-19 VACCINE Completed 04/05/2024, 09/2021, 11/08/2021, Additional history exists MENINGOCOCCAL VACCINES (B) Aged Out N o longer eligible based on patient's age to complete this topic PNEUMOCOCCAL VACCINES (0-49 years) Aged Out No longer eligible based on patient's age to complete this topic Medical Devices Not on file Procedures Procedure Name Priority Date/Time Associated Diagnosis Comments BASIC METABOLIC PANEL Routine 12/06/2018 11:46 AM EDT Kidney stone from Last 3 Months or Most Recently Relevant to Health Maintenance Results * Basic metabolic panel (12/06/2018 11:46 AM EDT) Sodium 139 134 - 144 mEq/L [facility] [employer] [facility] Potassium 4.0 3.5 - 5.3 mEq/L [facility] [employer] [facility] Chloride 102 98 - 107 mEq/L [facility] CO2 29 20 - 31 mEq/L [facility] ANIONGAP 8 4 - 14 [facility] Glucose 73 70 - 99 mg/dL [facility] BUN 10 6 - 20 mg/dL [facility] Creatinine 0.8 <1.1 mg/dL [facility] GFR 92 >60 mL/min/1.7 3m^2 [facility] Comment:(If patient is Afric an Montenegrin, multiply reported result by 1.21) Calcium 10.0 8.4 - 10.2 mg/dL [facility] Blood 12/06/2018 11:4 6 AM EDT 12/06/2018 11:46 AM EDT Narrative [facility] - 12/06/2018 12:31 PM EDT Unless otherwise noted, Testing performed through [facility], [place] [address] Jason Noel, PhD, Car Sealer No Atif Perez MD LAB BLOOD ORDERAB[place] [address] from Last 3 Months or Most Recently Relevant to Health Maintenance Insurance [employer] Care Teams Rail Setter Relationship Specialty Start Date End Date Atif Perez MD [address] [address] [email or web address] PCP - General Internal Medicine 12/05/16 Additional Source Comments The information contained in this document represents components of the legal health record. It is not the complete legal health record.[facility]
--- OUTSIDE RECORDS SUMMARY | 2025-03-03 12:17 | XMS_ITS | Clinical Summary ---
Author Organization [facility] Address [address] [place] [address] Phone Care Team Providers Care Hand Turner Name Role Phone Unavailable Primary Care Provider Unavailabl e Immunizations Immunization Administration Dates Next Due DTaP 5 08/06/2002, 9,02/02/1998,11/26,1997 HPV, Quadrivalent 08/08/2011,04/10/2011,09/29/19 11 Hep A, ped/adol 04/20/2014,04/16/2013 Hep B, ped/adol 05/04/1998,1997,1997 Hib (PRP-T) 02/02/1998, 8,1997,09/29 IPV 08/06/2002, 9,1997,09/29 Influenza, injectable, quadr ivalent, preservative free 04/21/2015,04/16/2013 Influenza, intranasal, quadrivalent 03/26,04/15/2012,04/10/2011,03/15,04/20/2008 MMR 08/06/2002,11/01/1998 Meningococcal Conj (Menactra) MCV4P 04/20/2014,0 03/15/2010 PPD Test 12/13/2015,11/29/2015 Td (adult) (MBL), 2 Lf tetan us toxoid, PF, adsorbed 04/25/2008 Tdap 03/15/2010 Varicella 08/29/2006,08/04/1999 Family History Relation Name Status Comments Father Alive healthy, overwt . sleep apnea Father's Brother Alive 2 1/2 broth ers healthy, one brother with schizophrenia. Father's Sister Alive 3 1/2 sister s strock aneurism. Maternal Grandfather Alive hyperte nsion, hyperlipidemia Maternal Grandmother Alive hyperte nsion, hyperlipidemia Mother Alive hypertension, h yperlipidemia, migraines Mother's Brother Alive hypertensio n, hyperlipidemia Mother's Sister hypertension , hyperlipidemia, COLON CANCER Paternal Grandfather Alive epilyps y osteoporosis Paternal Grandmother Alive hyperte nsion, hyperlipidemia, HEART ATTACK PGM SISTER LEUKEMIA, HIV Social History Tobacco Use Types Packs/Day Years Used Date Smoking Tobacco: Never Comments:never smoker Comments Unknown Sex and Gender Information Value Date Recorded Sex Assigned at Not on file Legal Sex Female 8:36 PM EST Gender Identity Not on file Sexual Orientation Not on file Last Filed Vital Signs Vital Sign Reading Time Taken Comments Blood Pressure 118/72 01/12/2016 12:00 AM EDT Pulse 88 01/12/2016 12:00 AM EDT Temperature 36.6 C (97.8 F) 01/28/2016 12:00 AM EDT Respiratory Rate - - Oxygen Saturation 99% 01/12/2016 12:00 AM EDT Inhaled Oxygen Concentration - - Weight 63.5 kg (140 lb) 01/28/2016 12:00 AM EDT Height 159.4 cm (5' 2.75 ) 01/12/2016 12:00 AM E DT Body Mass Index 25 01/12/2016 12:00 AM EDT Plan of Treatment Health Maintenance Due Date Last Done Comments DTaP,Tdap,and Td Vaccines (7 - Td or Tdap) 03/15/2020 03/15/2010, 04/25/2008, 08/06/2002, Additional history exists Influenza Vaccines (#1) 2025 04/21/20 15, 04/20/2014, 04/16/2013, Additional history exists COVID-19 Vaccine ( season) 2025 HIB Vaccines Aged Out 02/02/1998, 09/1997, 1997, Additional history exists No longer eligible based on patient's age to complete this topic Hepatitis B Vaccines Completed 05/04/1998, 1997, 1997 IPV Vaccines Completed 08/06/2002, 01/23, 1997, Additional history exists MMR Vaccines Completed 08/06/2002, 11/01/1998 Varicella Vaccines Completed 08/29/2006, 08/04/1999 HPV Vaccines Completed 08/08/2011, 03/25, 09/28/2010 Hepatitis A Vaccines Completed 04/20/2014, 04/16/20 13 Meningococcal Vaccine Completed 04/20/2014, 010 Men B Vaccine Aged Out No longer elig ible based on patient's age to complete this topic Pneumococcal Vaccine Aged Out No long er eligible based on patient's age to complete this topic Procedures * Due to [place] [employer] law, this organization might not be sharing sensitive test results. Procedure Name Priority Date/Time Associated Diagnosis Comments CHLAMYDIA AND GONORRHEA, AMPLIFIED Routine 01/14/2016 12:00 AM EDT from Last 3 Months or Most Recently Relevant to Health Maintenance Results * Due to [place] [employer] law, this organization might not be sharing sensitive test results. * Chlamydia and Gonorrhoea, Amplified (01/14/2016 12:00 AM EDT) C.TRACHOMATIS MARQUITA, URINE Negative CONVERTED LABS N.GONORRHOEAE MARQUITA, URINE Negative CONVERTED LABS NOTE (CONV) See Below For Report CONVERTED LABS 01/14/2016 us Nubia Alejandra MD LAB MICROBIOLOGY - GENERAL ORDER CHASIDY Final Result CONVERTED LABS from Last 3 Months or Most Recently Relevant to Health Maintenance
--- OUTSIDE RECORDS SUMMARY | 2025-03-03 12:17 | XMS_ITS | Encounter Summary ---
Author Organization [facility] Address [address] [place] [phone] Phone Care Team Providers Care Conveyor Feeder Name Role Phone Nubia Alejandra MD Primary Care Provider [phone] Encounter Details Date Type Department Care Team (Late st Contact Info) Description 11/10/[address] [facility] [address] [place] [address] Nubia Alejandra MD [address] [place] [address] Social History Tobacco Use Types Packs/Day Years [...] on filedocumented in this encounter Care Teams Conveyor Feeder Relationship Specialty Start Date End Date Nubia Alejandra MD [address] [place] [address] PCP - General 08/15/16 12/05/18 documented as of this encounter
--- OUTSIDE RECORDS SUMMARY | 2025-03-03 12:17 | XMS_ITS | Encounter Summary ---
Author Organization [facility] Address [address] [place] [address] Phone Care Team Providers Care Flue Lining Dipper Name Role Phone Nubia Alejandra MD Primary Care Provider [phone] Encounter Details Date Type Department Care Team (Late st Contact Info) Description 11/10/[address] [facility] [address] [place] [address] Nubia Alejandra MD [address] [place] [address] Social History Tobacco Use Types Packs/Day Years [...] on filedocumented in this encounter Care Teams Flue Lining Dipper Relationship Specialty Start Date End Date Nubia Alejandra MD [address] [place] [address] PCP - General 08/15/16 12/05/18 documented as of this encounter
== END 2025-03-03 11:43 | disposition home or self-care (01) ==
LOC: HO.HMCFM 10:27
PROVIDERS: PCP Nurse Practitioner Family; Visit Provider Nurse Practitioner Family
DX: H66.002 Acute suppurative otitis media without spontaneous rupture of ear drum, left ear (principal); J02.9 Acute pharyngitis, unspecified; Z13.9 Encounter for screening, unspecified

== ENCOUNTER → 2025-03-03 10:27 | Outpatient (BNVA) | payer OTHER, SELFPAY | PROVIDERS: PCP Nurse Practitioner Family; Visit Provider Nurse Practitioner Family | DX: H66.002 Acute suppurative otitis media without spontaneous rupture of ear drum, left ear (principal); J02.9 Acute pharyngitis, unspecified | CPT/HCPCS: 87880; 96127 ==

== ENCOUNTER 2025-04-14 11:54 | Outpatient (AMB) | payer OTHER, SELFPAY ==
--- NOTE | 2025-04-14 12:00 | A.OFFPC_ITS ---
Vital Signs 04/14/25 12:01 Height 5 ft 2 in Weight 139 lb BMI 25.4 BP 94/64 Blood Pressure Location Rt brachial Position Sitting Respiration 12 Pulse 75 Pulse Source Pulse Oximeter Temp 98.2 F Temp Source Oral Pulse Oximetry (%) 99 Oxygen Delivery Method Room Air Intake Visit Reasons: 1 year CPE Intake Note: Physical Clutch Inspector Required: No Allergies Penicillins Allergy (Severe, Verified 04/14/25 12:08) Hives Medication List - Last Reconciled 04/14/25 by Irma Duffy, [facility]- norethindrone-ethin estradiol 0.5-35 mg-mcg (Necon) tabs PO DAILY rizatriptan take 1 tablet at onset of headache; if no relief, may repeat 1 tablet after at least 2 hrs PO Tobacco use date assessed: 04/14/25 Dental Screening Dental Screen Date: 04/14/25 Did you have a dental visit in the last 12 months?: Yes Did you have a dental problem in the last 6 months where you did not have access to dental care?: No Was dental information given to patient?: Patient has dentist HPI HPI Comments History of Present Illness Details Alis 29 y/o F with migraine without aura, mul tiple concussions, renal stones, OCD, GENOVEVA, PTSD, history of recurrent strep despite tonsillectomy, family hx of skin ca& breast ca s/p lithotripsy 2017, tonsillectomy 2013, sinus surgery as child s/p dog bite 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 Mom and Dad alive and well. Strong family hx of endometriosis (sister, mom, aunt) Health Maintenance Pap 2021 NL , next appt 2025. 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 Migraine without aura: - History of migraines - Rizatriptan used as needed - Improvement noted w/ start of invisali gn to help her underbite/jaw Obsessive Compulsive Disorder (OCD), Anxiety, and PTSD: -tried antidepressant and anxiolytic in the past w/o + effect. Active w/ counselor. Lots of health anxiety. Denies SI/HI - Undergoes counseling Fhx of skin Ca - Derm referral in the works; no active concerns Fhx breast Ca: does self breast exams, no active concerns Health Maintenance - Completed recent flu vaccination - Completed COVID-19 vaccination - Pap smear performed in 2021 with appro priate follow-up scheduled - Engages in self-breast exams regularly - Dermatology appointment scheduled for June Review of Systems - Psychiatric: Reports OCD, anxiety, PTS D; currently undergoing counseling - Neurological: Reports migraines - General: Denies recent changes in fami ly medical history - Eyes: Denies vision problems impacting daily living - Skin: Denies open areas or rashes on t he feet - Respiratory: Reports no breathing issu es related to asthma or allergies - Gastrointestinal: No constipation or u rinary issues reported - Musculoskeletal: Denies hip or lower b ack pain Physical Exam General: Well developed, well nourished, in no acute distress. Appears stated age. Head: Normocephalic, atraumatic. Eyes: Pupils are equal, round and reactive to light and accommodation. Conjunctivae are clear. Scleras nonicteric bilat. Vision grossly normal. Ears: TMs clear AU, EACS WNL Nose: Patent, without discharge. Neck: No carotid bruit bilat. Supple, no adenopathy or thyromegaly. Breast: Edu on SBE. Patient performs self breast exams at home. Lungs: Clear to auscultation bilaterally. No rales, rhonchi or wheeze noted. Good air flow in all parada. Heart: Regular rate and rhythm. No murmurs, click, rubs or gallops are noted. Abdomen: Bowel sounds present in all quadrants. The abdomen is soft, nontender, with no masses or organomegaly noted. No hernias are noted. : Deferred. 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 Patient had Pap smear in 2021. Pulses: Peripheral pulses are equal and palpable bilaterally. Extremities: No clubbing, cyanosis nor edema is noted. No open areas, sores, or rashes on feet. Neurologic: Gait and station normal. Cranial Nerves 2-12 intact. Motor strength grossly symmetrical and intact. No sensory loss. Balance normal. Skin: No rashes, ulcers, or lesions noted. Turgor is good. Skin color is good. Hair and nails are without abnormalities. Psych: Normal eye contact, affect and mood appropriate, and normal interactions. Patient is alert and appropriate to context. Results 03/2024 normal electrolytes, normal annie l function, hemoglobin A1c 4.7%, normal LFTs, normal lipid profile, normal TSH, normal urine microalbumin creatinine ratio Discussion Notes The patient attended for an annual comprehensive physical examination. She reported use of Rizatriptan for migraine management with good results and expressed a need for a refill. Her current use of control and past medical history was reviewed. There was no need for further lab testing at this time as the previous year's results were satisfactory, and there were no new symptoms or weight changes. Flu and COVID-19 vaccinations were current. The patient has a routine dermatological follow-up scheduled for June. The patient acknowledged completing self-breast exams due to health anxiety, ensuring early detection of any changes. There was a brief discussion about the referral situation with dermatology, noting backup options if necessary. She experiences no major depressive symptoms and is actively engaged with long-term case management at work. Encouraged maintaining current lifestyle and health management plan. Patient was given time to ask questions. All questions were answered to their satisfaction. Assessment and Plan 1. Migraine without aura - Refill Rizatriptan - Monitor symptoms 2. Obsessive Compulsive Disorder (OCD), Anxiety, and PTSD - Continue counseling - Assess as needed 3. FHx breast ca: cont self breast exams Fhx Skin ca: Derm consult 06/2025; if falls through let me know; can consider referral to [facility] Patient Instructions - Continue prescribed Rizatriptan as nee ded for migraines. - Maintain current mental health therapy and counseling. - Perform regular self-breast exams. - Monitor any skin changes; report signi ficant changes. - Use the patient portal for communicati ng sickness which may expedite care. - RTO 1 year CPE, sooner PRN Consent Patient was informed and verbally consented to the use of an ambient scribe for clinic note documentation during this visit. COUNTS INCLUDE 234 BEDS AT THE [facility] Medical History (Updated 04/14/25 @ 12:08 by SALLY Up-IZZY) Anxiety Migraines No pertinent family history Surgical History History of facial surgery Hx of tonsillectomy Family History Mother Mental health disorder Sister Mental health disorder Maternal Grandfather Mental health disorder Social History (Updated 04/16/24 @ 12:24 by Annmarie Vizcarra MA) Household Members: None Both parents involved: No Caregiver staying overnight: No Housing: House Are you a primary animal care giver to a significant other at home: No Do you presently have visiting nurse or other home services: No 75 years or older and lives alone: No Alcohol intake: current Alcohol intake frequency: a few times a month Patient Tobacco Use Status: Never used Tobacco e-Cigarette/Vaping Use: Never Used Substance Use Type: Marijuana service: No Current occupational status: employed 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 Cognitive needs: No Hearing needs: No Vision needs: No Questionnaire Thrive Questionnaire Date Thrive assessed: 03/03/25 I am a: Patient What is your living situation today?: I have a steady place to live Within the past 12 months, did the food you bought not last and you didn't have the money to get more?: Never true Within the past 12 months, did you worry whether your food would run out before you got money to buy more?: Never true Do you have trouble paying for medicines?: No Do you have trouble getting transportation to medical appointments?: No Do you have trouble paying your heating and electricity bill?: No Do you have trouble taking care of your child, family member or friend?: No Do you have trouble with day-to-day activities such as bathing, preparing meals, shopping, managing finances, etc.?: No Are you currently unemployed and looking for a job?: No Are you interested in more education?: No Please select the resources that you would like help with: None Currently or been in a relationship where the following occur: No concerns reported THRIVE Score: 0 AUDIT C Alcohol Use Questionnaire (AUDIT-C) 1. How often do you have a drink containing alcohol?: Monthly or less 2. How many drinks containing alcohol do you have on a typical day when you are drinking?: 1 or 2 3. How often do you have six or more drinks on one occasion?: Never Total Score: 1 GENOVEVA-7 AMB Questionnaire GENOVEVA-7 Date GENOVEVA - 7 assessed: 03/03/25 Source: Developed by Drs. Jass Scott, Maida Taylor, Hima Kim and colleagues, with an educational vanessa from [employer]. Physical exam (Primary Care) Vital Signs: Last Vital Signs Temp 98.2 F 04/14/25 12:01 Pulse 75 04/14/25 12:01 Resp 12 04/14/25 12:01 BP 94/64 04/14/25 12:01 Pulse Ox 99 04/14/25 12:01 Oxygen Delivery Method Room Air 04/14/25 12:01 BMI result Body Mass Index 25.4 Tobacco/Smoking Status: Tobacco use Status Tobacco use date assessed 04/14/25 04/14/25 12:03 Patient Tobacco Use Status Never used Tobacco 04/14/25 12:03 e-Cigarette/Vaping Use Never Used 04/14/25 12:03 Thrive Assessment: Date of Thrive Assessment Date Thrive assessed 03/03/25 04/14/25 12:03 Currently or been in a relationship where the following occur: No concerns reported Coding Level of Care Code Est Pt Prev Care 18-39y(11853) Diagnoses Encounter for general adult medical examination without abnormal findings Z00.00 Mixed obsessional thoughts and acts F42.2 Obsessive-compulsive disorder type: mixed obsessional thoughts and acts GENOVEVA (generalized anxiety disorder) F41.1 PTSD (post-traumatic stress disorder) F43.10 Family history of breast cancer Z80.3 Family history of skin cancer Z80.8 Migraine without aura and without status migrainosus, not intractable G43.009 Status migrainosus presence: without status migrainosus Intractability: not intractable Assessment & Plan Assessment & Plan (1) Encounter for general adult medical examination without abnormal findings: Onset Date: ~04/14/25 Code(s): Z00.00 - Encounter for general adult medical examination without abnormal findings Category: Medical (2) OCD (obsessive compulsive disorder): Code(s): F42.9 - Obsessive-compulsive disorder, unspecified Category: Medical Qualifiers: Obsessive-compulsive disorder type: mixed obsessional thoughts and acts Qualified Code(s): F42.2 - Mixed obsessional thoughts and acts (3) GENOVEVA (generalized anxiety disorder): Code(s): F41.1 - Generalized anxiety disorder Category: Medical (4) PTSD (post-traumatic stress disorder): Code(s): F43.10 - Post-traumatic stress disorder, unspecified Category: Medical (5) Family history of breast cancer: Code(s): Z80.3 - Family history of malignant neoplasm of breast Category: Medical (6) Family history of skin cancer: Code(s): Z80.8 - Family history of malignant neoplasm of other organs or systems Category: Medical (7) Migraine without aura: Code(s): G43.009 - Migraine without aura, not intractable, without status migrainosus Category: Medical Qualifiers: Status migrainosus presence: without status migrainosus Intractability: not intractable Qualified Code(s): G43.009 - Migraine without aura, not intractable, without status migrainosus Plan . Medications: Refilled rizatriptan take 1 tablet at onset of headache; if no relief, may repeat 1 tablet after at least 2 hrs PO 10 tabs 2RF Discontinued azithromycin Discontinued Reason: Patient Completed Course For 250 mg dose pack: take 500 mg today (day 1), then 250 mg for 4 days (days 2-5) PO 5 days 6 tabs 0RF Patient Instructions: Health screenings for women You should visit your health care provider from time to time, even if you are healthy. The purpose of these visits is to: Screen for medical issues Assess your risk for future medical problems Encourage a healthy lifestyle Update vaccinations and other preventive care services Help you get to know your provider in case of an illness Information Even if you feel fine, you should still see your provider for regular checkups. These visits can help you avoid problems in the future. For example, the only way to find out if you have high blood pressure is to have it checked regularly. High blood sugar and high cholesterol levels also may not have any symptoms in the early stages. A simple blood test can check for these conditions. There are specific times when you should see your provider or receive specific health screenings. The [place] Preventive Services Task Force publishes a list of recommended screenings. Below are screening guidelines for women ages 18 to 39. BLOOD PRESSURE SCREENING Your blood pressure should be checked at least once every 3 to 5 years if: Your blood pressure is in the normal range (top number less than 120 mm Hg and bottom number less than 80 mm Hg) You don't have risk factors for high blood pressure Ask your provider if you need your blood pressure checked more often if: The top number is 120 to 129 mm Hg or the bottom number is 70 to 79 mm Hg You have diabetes, heart disease, kidney problems, are overweight, or have certain other health conditions You have a first-degree relative with high blood pressure You are Black You had high blood pressure during a If the top number is 130 mm Hg or greater or the bottom number is 80 mm Hg or greater, this is considered stage 1 hypertension. Schedule an appointment with your provider to learn how you can reduce your blood pressure. Watch for blood pressure screenings in your area. Ask your provider if you can stop in to have your blood pressure checked. BREAST CANCER SCREENING Experts do not agree about the benefits of breast self-exams in finding breast cancer or saving lives. Talk to your provider about what is best for you. A screening mammogram is not recommended for most women under age 40. Your provider may discuss and recommend mammograms, MRI scans, or ultrasounds if you have an increased risk for breast cancer, such as: A mother or sister who had breast cancer at a young age (most often starting screening earlier than the age the close relative was diagnosed) You carry a high-risk genetic marker CERVICAL CANCER SCREENING Cervical cancer screening should start at age 21 years unless your provider advises otherwise. After the first test: Women ages 21 through 29 should have a Pap test every 3 years. Exoprts do not agree on whether HPV testing is recommended for this age group. Women ages 30 through 65 should be screened with either a Pap test every 3 years or the HPV test every 5 years or both tests every 5 years (called cotesting ). Women who have been treated for precancer (cervical dysplasia) should continue to have Pap tests for 20 years after treatment or until age 65, whichever is longer. If you have had your uterus and cervix removed (total hysterectomy), and you have not been diagnosed with cervical cancer or precancer (high grade cervical neoplasia), you do not need cervical cancer screening. CHOLESTEROL SCREENING Cholesterol screening should begin at: Age 45 for women with no known risk factors for coronary heart disease Age 20 for women with known risk factors for coronary heart disease Repeat cholesterol screening should take place: Every 5 years for women with normal cholesterol levels More often if changes occur in lifestyle (including weight gain and diet) More often if you have diabetes, heart disease, kidney problems, or certain other conditions DIABETES SCREENING You should be screened for diabetes starting at age 35 and then repeated every 3 years if you have no risk factors for diabetes. Screening may need to start earlier and be repeated more often if you have other risk factors for diabetes, such as: You have a first degree relative with diabetes. You are overweight or have obesity. You have high blood pressure, prediabetes, or a history of heart disease. Screening for diabetes should be done if you are planning to become and you are overweight and have other risk factors such as high blood pressure. DENTAL EXAM Go to the dentist once or twice every year for an exam and cleaning. Your dentist will evaluate if you need more frequent visits. EYE EXAM Have an eye exam every 5 to 10 years before age 40. If you have vision problems, have an eye exam every 2 years or more often if recommended by your provider. You should have an eye exam that includes an examination of your retina (back of your eye) at least every year if you have diabetes. IMMUNIZATIONS Commonly needed vaccines include: Flu shot: get one every year. COVID-19 vaccine: ask your provider what is best for you. Tetanus-diphtheria and acellular pertussis (Tdap) vaccine: have one at or after age 19 as one of your tetanus-diphtheria vaccines if you did not receive it as an adolescent. Tetanus-diphtheria: have a booster (or Tdap) every 10 years. Varicella vaccine: receive 2 doses if you never had chickenpox or the varicella vaccine. Hepatitis B vaccine: receive 2, 3, or 4 doses, depending on your exact circumstances. Measles, mumps, and rubella (MMR) vaccine: receive 1 to 2 doses if you are not already immune to MMR. Your provider can tell you if you are immune. Ask your provider about the human papillomavirus (HPV) vaccine if: You have not received the HPV vaccine in the past You have not completed the full vaccine series (you should catch up on this shot) Ask your provider if you should receive other immunizations if you have certain health problems that increase your risk for some diseases such as pneumonia. INFECTIOUS DISEASE SCREENING Women who are sexually active should be screened for chlamydia and gonorrhea up until age 25. Women 25 years and older should be screened for chlamydia and gonorrhea if at high risk. Screening for hepatitis C: All adults ages 18 to 79 should get a one-time test for hepatitis C. people should be screened at every . Screening for human immunodeficiency virus (HIV): All people ages 15 to 65 should get a one-time test for HIV. Depending on your lifestyle and medical history, you may also need to be screened for infections such as syphilis and HIV, as well as other infections. PHYSICAL EXAM All adults should visit their provider from time to time, even if they are healthy. The purpose of these visits is to: Screen for disease Assess your risk of future medical problems Encourage a healthy lifestyle Update your vaccinations and other preventive care services Maintain a relationship with a provider in case of an illness Your height, weight, and BMI should be checked at every exam. During your exam, your provider may ask you about: Depression and anxiety Diet and exercise Alcohol and tobacco use Safety issues, such as using seat belts, smoke detectors, and intimate partner violence Your medicines and risk for interactions SKIN SELF-EXAM Your provider may check your skin for signs of skin cancer, especially if you're at high risk, such as if you: Have had skin cancer before Have close relatives with skin cancer Have a weakened immune system OTHER SCREENING Talk with your provider about colon cancer screening if you have a strong family history of colon cancer or polyps, or if you have had inflammatory bowel disease or polyps yourself. Routine bone density screening of women under 40 is not recommended.
[2025-04-14 12:01] VITALS: BP 94/64; PULSE 75; RESP 12; TEMP 36.8; O2SAT 99; BMI 25.4
--- OUTSIDE RECORDS SUMMARY | 2025-04-14 15:21 | XMS_ITS | Clinical Summary ---
Author Organization [facility] Address [address] [place] [id number] Phone Care Team Providers Care Manager Laundry Name Role Phone Atif Perez MD Primary Care Provider [phone] Allergies Active Allergy Reactions Criticality Noted Date [...] 08/06/2002,11/01/1998 Meningococcal MCV4P 04/20/2014,03/15/2010 Meningococcal unknown serogroups 04/20/2014,0906/2009 PPD Test 12/06/2018,12/13/2015,11/29/2015 Polio, Unspecified Formulation 3,02/01/1999,1997,09/29 [...] 12/06/2018 8:32 AM EDT Plan of Treatment Upcoming Encounters Date Type Department Care Team (Late st Contact Info) Description 04/16/2025 4:00 PM EDT Telemedicine - audio only [facility] [address] [place] [address] Atif Perez MD [address] [place] [address] [email or web address] Health Maintenance Due Date Last Done Comments HIV ONE-TIME SCREENING (18-65 YEARS) 2015 PAP SMEAR 2018 POTASSIUM LEVEL 12/07/2019 12/06/2018, 11/29/2016 DEPRESSION SCREENING 02/12/2021 02/13/2020 INFLUENZA VACCINE (#1) 2025 4, 03/26/2023, 03/16/2022, Additional history exists COVID-19 VACCINE ( season) 2025 04/05/2024, 04/28/2022, 11/08/2021, Additional history exists Adult Td,Tdap Booster 12/06/2028 12/06/2018 , 03/15/2010, 04/25/2008 HIB VACCINES Completed 11/01/1998, 01/23, 1997, Additional history exists HEPATITIS A VACCINES Completed 04/20/2014, 04/16/20 13 MENINGOCOCCAL VACCINES (ACWY) Completed 04/20/2014, 03/15/2010 HEPATITIS C SCREENING Completed 07/01/2019 SMOKING STATUS SCREENING (Once After 26 Yrs) Completed 01/17/2023 MENINGOCOCCAL VACCINES (B) Aged Out N o [...] EDT) Sodium 139 134 - 144 mEq/L [facility] Potassium 4.0 3.5 - 5.3 mEq/L [facility] Chloride 102 98 - 107 mEq/L [facility] CO2 29 20 - 31 mEq/L [facility] ANIONGAP 8 4 - 14 [facility] Glucose 73 70 - 99 mg/dL [facility] BUN 10 6 - 20 mg/dL [facility] Creatinine 0.8 <1.1 mg/dL [facility] GFR 92 >60 mL/min/1.7 3m^2 [facility] Comment:(If patient is [place] an [place]er, multiply reported result by 1.21) Calcium 10.0 8.4 - 10.2 mg/dL [facility] Blood 12/06/2018 11:4 6 AM EDT 12/06/2018 11:46 AM EDT Narrative [facility] - 12/06/2018 12:31 PM EDT Unless otherwise noted, Testing performed through [facility], [place] [address] Jason Noel, PhD, Railroad Conductor No us Atif Perez MD LAB BLOOD ORDERABLES Rama cruz Result [place] [address] from Last 3 Months or Most Recently Relevant to Health Maintenance Insurance [facility] [employer] Care Teams Manager Laundry Relationship Specialty Start Date End Date Atif Perez MD [address] [place] [id number] [email or web address] PCP - General Internal Medicine 12/05/16 Additional Source Comments The information contained in this document represents components of the legal health record. It is not the complete legal health record.[facility]
--- OUTSIDE RECORDS SUMMARY | 2025-04-14 15:21 | XMS_ITS | Encounter Summary ---
Author Organization [facility] Address [address] [place] [address] Phone Care Team Providers Care Guard Supervisor Name Role Phone Nubia Alejandra MD Primary Care Provider [phone] Encounter Details Date Type Department Care Team (Late st Contact Info) Description 11/10/[address] [facility] [address] [place] [address] Nubia Alejandra MD [address] [place] [address] Social History Tobacco Use Types Packs/Day Years [...] on filedocumented in this encounter Care Teams Guard Supervisor Relationship Specialty Start Date End Date Nubia Alejandra MD [address] [place] [address] PCP - General 08/15/16 12/05/18 documented as of this encounter
--- OUTSIDE RECORDS SUMMARY | 2025-04-14 15:21 | XMS_ITS | Clinical Summary ---
Author Organization [facility] Address [address] [place] [id number] Phone Care Team Providers Care Chiropractor Sole Practitioner Name Role Phone Unavailable Primary Care Provider [...] complete this topic Procedures * Due to [address] law, this organization might not be sharing sensitive test results. Procedure Name Priority Date/Time Associated Diagnosis Comments CHLAMYDIA AND GONORRHEA, AMPLIFIED Routine 01/14/2016 12:00 AM EDT from Last 3 Months or Most Recently Relevant to Health Maintenance Results * Due to [address] law, this organization might not be sharing [...]
--- OUTSIDE RECORDS SUMMARY | 2025-04-14 15:21 | XMS_ITS | Encounter Summary ---
Author Organization [facility] Address [address] [place] [address] Phone Care Team Providers Care Sr. Pricing Analyst Name Role Phone Nubia Alejandra MD Primary Care Provider [phone] Encounter Details Date Type Department Care Team (Late st Contact Info) Description 11/10/[address] [facility] [address] [place] [address] Nubia Alejandra MD [address] [place] [address] Social History Tobacco Use Types Packs/Day Years [...] on filedocumented in this encounter Care Teams Sr. Pricing Analyst Relationship Specialty Start Date End Date Nubia Alejandra MD [address] [place] [address] PCP - General 08/15/16 12/05/18 documented as of this encounter
--- OUTSIDE RECORDS SUMMARY | 2025-04-14 15:21 | XMS_ITS | Encounter Summary ---
Author Organization [facility] Address [address] [facility] [address] [place] [address] Phone Care Team Providers Care Set Up Mechanic Name Role Phone Atif Perez MD Unavailable [phone] Atif Perez MD Primary Care Provider [phone] Jolanta Starr MD Primary Care Provider [phone] Atif Perez MD Primary Care Provider [phone] Encounter Details Date Type Department Care Team (Late st Contact Info) Description 11/30/2016 Transcribe Orders [facility] [address] [place] [address] Kaushal Hopson MD, MPH [address] [place] [id number] [email or web address] Social History Tobacco Use Types Packs/Day Years Used Date Smoking Tobacco: Never Comments Unknown Sex and Gender Information Value Date Recorded Sex Assigned at Not on file Legal Sex Female 11:15 AM EDT Gender Identity Not on file Sexual Orientation Not on file documented as of this encounter Plan of Treatment Upcoming Encounters Date Type Department Care Team (Late Contact Info) Description 04/16/2025 4:00 PM EDT Telemedicine - audio only [address] [place] [address] Atif Perez MD [address] [place] [address] William. [address] [place] [address] [email or web address] documented as of this encounter Visit Diagnoses Not on filedocumented in this encounter Care Teams Set Up Mechanic Relationship Specialty Start Date End Date Atif Perez MD [address] [place] [address] [place] [id number] [email or web address] PCP - General Internal Medicine 11/30/16 12/03/16 Jolanta Starr MD [address] [place] [address] [place] [id number] [email or web address] PCP - General Internal Medicine 12/04/16 12/04/16 Atif Perez MD [address] [place] [address] [place] [id number] [email or web address] PCP - General Internal Medicine 12/05/16 Atif Perez MD [address] [place] [address] [place] [id number] [email or web address] Insurance Assigned Provider 09/29/23 12/01/23 documented as of this encounter Additional Source Comments The information contained in this document represents components of the legal health record. It is not the complete legal health record.[facility]
--- OUTSIDE RECORDS SUMMARY | 2025-04-14 15:21 | XMS_ITS | Encounter Summary ---
Author Organization [facility] Address [address] [place] [address] Phone Care Team Providers Care Mixed Crop Farmer Name Role Phone Nubia Alejandra MD Primary Care Provider [phone] Encounter Details Date Type Department Care Team (Late st Contact Info) Description 11/10/[address] [facility] [address] [place] [address] Nubia Alejandra MD [address] [place] [address] Social History Tobacco Use Types Packs/Day Years [...] on filedocumented in this encounter Care Teams Mixed Crop Farmer Relationship Specialty Start Date End Date Nubia Alejandra MD [address] [place] [address] PCP - General 08/15/16 12/05/18 documented as of this encounter
== END 2025-04-14 12:19 | disposition home or self-care (01) ==
LOC: HO.HMCFM 11:56
PROVIDERS: PCP Nurse Practitioner Family; Visit Provider Nurse Practitioner Family
DX: Z00.00 Encounter for general adult medical examination without abnormal findings (principal); F42.2 Mixed obsessional thoughts and acts; F41.1 Generalized anxiety disorder; F43.10 Post-traumatic stress disorder, unspecified; Z80.3 Family history of malignant neoplasm of breast; Z80.8 Family history of malignant neoplasm of other organs or systems; G43.009 Migraine without aura, not intractable, without status migrainosus